=== PATIENT | female | born 1990 | race Hispanic/Latino ===

== ENCOUNTER 2019-04-13 20:57 | Emergency (ER) | payer OTHER ==
[~2019-04-13] VITALS: Ht 152.4 cm; Wt 72.0 kg
[2019-04-13 21:52] LABS: URINE BILIRUBIN - DIPSTICK NEGATIVE (NEGATIVE); URINE BLOOD DIPSTICK NEGATIVE (NEGATIVE); URINE COLOR YELLOW; URINE GLUCOSE - DIPSTICK NEGATIVE (NEGATIVE); URINE KETONE NEGATIVE (NEGATIVE); URINE LEUK ESTERASE NEGATIVE (NEGATIVE); URINE NITRITE - DIPSTICK NEGATIVE (Negative); URINE PH 5.5 (4.5-8.0); URINE PROTEIN - DIPSTICK NEGATIVE (NEG-TRACE); URINE SPECIFIC GRAVITY 1.025; URINE UROBILINOGEN - DIPSTICK 0.2 E.U./dL (0.2)
[2019-04-13 21:57] LABS: BARBITURATES NEGATIVE (NEGATIVE); COCAINE NEGATIVE (NEGATIVE); METHADONE NEGATIVE (NEGATIVE); OXCYCODONE NEGATIVE (NEGATIVE); TETRAHYDROCANNABIONOL NEGATIVE (NEGATIVE); TRICYLIC ANTIDEPRESSANTS NEGATIVE (NEGATIVE)
[2019-04-13 22:06] LABS: HEMATOCRIT 35.8 % (37.0-47.0); HEMOGLOBIN 11.5 g/dl (12.0-16.0); IMMATURE GRANULOCYTES 0.3 % (0.0-5.0); MEAN CELL VOLUME 81.4 fL CALC (80.0-100.0); MEAN CORPUSCULAR HGB 26.1 pG CALC (26.0-32.0); MEAN CORPUSCULAR HGB CONC 32.1 g/L CALC (32.0-36.0); NEUT# 4.12 thou/uL (2.00-7.15); RED BLOOD COUNT 4.4 mill/uL (4.20-5.60); RED CELL DISTRI WIDTH 12.6 % (11.5-15.5)
[2019-04-13 22:24] LABS: ALBUMIN 4.3 g/dL (3.2-5.0); ALKALINE PHOSPHATASE 86 u/l (38-126); ANION GAP 14 (6-22 (CALC)); BILIRUBIN, TOTAL 0.8 mg/dL (0.0-1.4); BUN 13 mg/dL (7-17); BUN/CREATININE RATIO 14 (12-20 (CALC)); CARBON DIOXIDE 26 mmol/l (22-30); CHLORIDE 102 mmol/l (95-108); CREATININE 0.9 mg/dL (0.5-1.0); GFR > 60 ML/MIN (>=60 (CALC)); GFR FOR AFR.AMER. > 60 ML/MIN (>=60 (CALC)); POTASSIUM 3.7 mmol/l (3.5-5.1); SGOT/AST 27 u/l (14-36); SODIUM 139 mmol/l (137-146); TOTAL PROTEIN 7.9 g/dL (6.3-8.2)
[2019-04-13 23:44] VITALS: BP 115/69
== END 2019-04-13 23:44 | disposition home or self-care (01) ==
LOC: ED 20:57
PROVIDERS: Emergency Medicine
DX: R51 Headache (principal); R42 Dizziness and giddiness

== ENCOUNTER 2019-07-02 10:21 | Emergency (ER) | payer OTHER ==
[~2019-07-02] VITALS: Ht 152.4 cm; Wt 90.9 kg
[2019-07-02 11:21] LABS: URINE BILIRUBIN - DIPSTICK NEGATIVE (NEGATIVE); URINE BLOOD DIPSTICK MODERATE (NEGATIVE); URINE COLOR YELLOW; URINE GLUCOSE - DIPSTICK NEGATIVE (NEGATIVE); URINE KETONE NEGATIVE (NEGATIVE); URINE LEUK ESTERASE NEGATIVE (NEGATIVE); URINE NITRITE - DIPSTICK NEGATIVE (Negative); URINE PH 5.5 (4.5-8.0); URINE PROTEIN - DIPSTICK NEGATIVE (NEG-TRACE); URINE UROBILINOGEN - DIPSTICK 0.2 E.U./dL (0.2)
[2019-07-02 11:30] LABS: URINE SQUAMOUS EPITHELIAL CELL FEW EPI/hpf (0-FEW); URINE WBC 0-2 WBC/hpf (0-5)
[2019-07-02 11:35] LABS: HEMATOCRIT 38.6 % (37.0-47.0); HEMOGLOBIN 12.6 g/dl (12.0-16.0); IMMATURE GRANULOCYTES 0.5 % (0.0-5.0); MEAN CELL VOLUME 80.9 fL CALC (80.0-100.0); MEAN CORPUSCULAR HGB 26.4 pG CALC (26.0-32.0); MEAN CORPUSCULAR HGB CONC 32.6 g/L CALC (32.0-36.0); NEUT# 3.14 thou/uL (2.00-7.15); RED BLOOD COUNT 4.77 mill/uL (4.20-5.60); RED CELL DISTRI WIDTH 13.4 % (11.5-15.5)
[2019-07-02 11:55] LABS: ALBUMIN 4.4 g/dL (3.2-5.0); ALKALINE PHOSPHATASE 116 u/l (38-126); ANION GAP 15 (6-22 (CALC)); BILIRUBIN, TOTAL 0.2 mg/dL (0.0-1.4); BUN 11 mg/dL (7-17); BUN/CREATININE RATIO 16 (12-20 (CALC)); CARBON DIOXIDE 21 mmol/l (22-30); CHLORIDE 105 mmol/l (95-108); CREATININE 0.7 mg/dL (0.5-1.0); GFR > 60 ML/MIN (>=60 (CALC)); GFR FOR AFR.AMER. > 60 ML/MIN (>=60 (CALC)); POTASSIUM 4.2 mmol/l (3.5-5.1); SGOT/AST 26 u/l (14-36); SODIUM 136 mmol/l (137-146)
[2019-07-02] MEDS ORDERED: LOTRISONE EX (12:05)
[2019-07-02] MEDS ORDERED: ZOFRAN4 MG/TAB PO (12:05)
[2019-07-02 12:16] VITALS: BP 95/65
[2019-07-02] MEDS ORDERED: BUPROPION HCL300 MG PO (12:18)
[2019-07-02] MEDS ORDERED: SIMVASTATIN20 MG PO (12:18)
== END 2019-07-02 12:28 | disposition home or self-care (01) ==
LOC: ED 10:21
PROVIDERS: Family Medicine
DX: N93.9 Abnormal uterine and vaginal bleeding, unspecified (principal); R21 Rash and other nonspecific skin eruption; R11.0 Nausea

== ENCOUNTER 2019-09-22 | Emergency (ER) | payer OTHER ==
[~2019-09-22] MED LIST: BUPROPION HCL300 MG PO; LOTRISONE EX; SIMVASTATIN20 MG PO; ZOFRAN4 MG/TAB PO
[2019-09-22 15:18] LABS: URINE BILIRUBIN - DIPSTICK NEGATIVE (NEGATIVE); URINE BLOOD DIPSTICK NEGATIVE (NEGATIVE); URINE CLARITY CLEAR; URINE COLOR YELLOW; URINE GLUCOSE - DIPSTICK NEGATIVE (NEGATIVE); URINE KETONE NEGATIVE (NEGATIVE); URINE LEUK ESTERASE NEGATIVE (Negative); URINE NITRITE - DIPSTICK NEGATIVE (Negative); URINE PROTEIN - DIPSTICK TRACE mg/dL (NEG-TRACE); URINE SPECIFIC GRAVITY >=1.030; URINE UROBILINOGEN - DIPSTICK 0.2 E.U./dL (0.2)
== END 2019-09-22 16:50 | disposition home or self-care (01) ==
DX: S40.012A Contusion of left shoulder, initial encounter (principal); S80.11XA Contusion of right lower leg, initial encounter; I10 Essential (primary) hypertension; V48.6XXA Car passenger injured in noncollision transport accident in traffic accident, initial encounter

== ENCOUNTER 2020-07-27 14:17 | Emergency (ER) | payer OTHER ==
[~2020-07-27] VITALS: Ht 152.4 cm; Wt 81.0 kg
[2020-07-27 14:52] LABS: HEMATOCRIT 40.1 % (37.0-47.0); HEMOGLOBIN 12.9 g/dl (12.0-16.0); IMMATURE GRANULOCYTES 0.3 % (0.0-5.0); MEAN CELL VOLUME 80.4 fL CALC (80.0-100.0); MEAN CORPUSCULAR HGB 25.9 pG CALC (26.0-32.0); MEAN CORPUSCULAR HGB CONC 32.2 g/dL CAL (32.0-36.0); NEUT# 4.02 thou/uL (2.00-7.15); RED BLOOD COUNT 4.99 mill/uL (4.20-5.60)
[2020-07-27 15:21] LABS: ALBUMIN 4.7 g/dL (3.2-5.0); ALKALINE PHOSPHATASE 101 u/l (38-126); ANION GAP 16 (6-22 (CALC)); BUN 12 mg/dL (7-17); BUN/CREATININE RATIO 16 (12-20 (CALC)); C-REACTIVE PROTEIN 0.5 mg/dL (0-0.9); CARBON DIOXIDE 25 mmol/l (22-30); CHLORIDE 104 mmol/l (95-108); CREATININE 0.7 mg/dL (0.5-1.0); GFR > 60 ML/MIN (>=60 (CALC)); GFR FOR AFR.AMER. > 60 ML/MIN (>=60 (CALC)); POTASSIUM 3.7 mmol/l (3.5-5.1); SGOT/AST 31 u/l (14-36); SODIUM 141 mmol/l (137-146); TOTAL PROTEIN 8.9 g/dL (6.3-8.2)
[2020-07-27 15:33] LABS: BILIRUBIN, TOTAL 0.5 mg/dL (0.0-1.4)
[2020-07-27 15:54] LABS: URINE BILIRUBIN - DIPSTICK NEGATIVE (NEGATIVE); URINE BLOOD DIPSTICK NEGATIVE (NEGATIVE); URINE COLOR YELLOW; URINE GLUCOSE - DIPSTICK NEGATIVE (NEGATIVE); URINE KETONE NEGATIVE (NEGATIVE); URINE LEUK ESTERASE NEGATIVE (Negative); URINE NITRITE - DIPSTICK NEGATIVE (Negative); URINE PH 8.5 (4.5-8.0); URINE PROTEIN - DIPSTICK NEGATIVE (NEG-TRACE); URINE SPECIFIC GRAVITY 1.015; URINE UROBILINOGEN - DIPSTICK 0.2 E.U./dL (0.2)
[2020-07-27 15:55] LABS: URINE CLARITY HAZY
[2020-07-27 16:50] VITALS: BP 127/81
== END 2020-07-27 17:00 | disposition home or self-care (01) ==
LOC: ED 14:17
DX: B35.3 Tinea pedis (principal); I10 Essential (primary) hypertension

== ENCOUNTER 2020-10-13 15:33 | Emergency (ER) | payer OTHER ==
[~2020-10-13] VITALS: Ht 152.4 cm; Wt 86.4 kg
[2020-10-13] MEDS ORDERED: PREDNISONE50 MG PO (16:44)
[2020-10-13 17:35] VITALS: BP 119/76
== END 2020-10-13 17:35 | disposition home or self-care (01) ==
LOC: ED 15:33
DX: T78.40XA Allergy, unspecified, initial encounter (principal); I10 Essential (primary) hypertension; X58.XXXA Exposure to other specified factors, initial encounter; Z20.822 Contact with and (suspected) exposure to COVID-19

== ENCOUNTER 2022-05-17 02:28 | Emergency (ER) | payer OTHER ==
[~2022-05-17] VITALS: Ht 152.4 cm; Wt 79.5 kg
[~2022-05-17 02:28] MED LIST changes: +PREDNISONE50 MG PO
[2022-05-17 02:40] VITALS: BP 134/88
[2022-05-17 02:45] VITALS: BP 116/92
[2022-05-17] MEDS ORDERED: FAMCICLOVIR500 MG PO (02:52)
[2022-05-17] MEDS ORDERED: ULTRAM50 M1 PO (02:52)
[2022-05-17] MEDS ORDERED: ZOVIRAX52 TOP (02:52)
[2022-05-17 03:02] VITALS: BP 116/92
== END 2022-05-17 03:05 | disposition home or self-care (01) ==
LOC: ED 02:28
DX: B02.9 Zoster without complications (principal); I10 Essential (primary) hypertension

== ENCOUNTER 2022-05-30 17:59 | Emergency (ER) | payer OTHER ==
[~2022-05-30] VITALS: Ht 152.4 cm; Wt 79.0 kg
[2022-05-30] VITALS (8 sets, daily range): BP systolic 91–127; BP diastolic 63–81
[~2022-05-30 17:59] MED LIST changes: +FAMCICLOVIR500 MG PO; +ULTRAM50 M1 PO; +ZOVIRAX52 TOP
[2022-05-30 20:05] LABS: URINE BILIRUBIN - DIPSTICK NEGATIVE (NEGATIVE); URINE BLOOD DIPSTICK MODERATE (NEGATIVE); URINE COLOR YELLOW; URINE GLUCOSE - DIPSTICK NEGATIVE (NEGATIVE); URINE KETONE NEGATIVE (NEGATIVE); URINE PH 7.5 (4.5-8.0); URINE PROTEIN - DIPSTICK NEGATIVE (NEG-TRACE); URINE SPECIFIC GRAVITY 1.015; URINE UROBILINOGEN - DIPSTICK 0.2 E.U./dL (0.2)
[2022-05-30 20:07] LABS: URINE LEUK ESTERASE MODERATE (NEGATIVE); URINE NITRITE - DIPSTICK NEGATIVE (Negative)
[2022-05-30 20:15] LABS: URINE SQUAMOUS EPITHELIAL CELL FEW EPI/hpf (0-FEW); URINE WBC 50-100 WBC/hpf (0-5)
[2022-05-30 20:24] LABS: HEMATOCRIT 34.7 % (37.0-47.0); HEMOGLOBIN 11.6 g/dl (12.0-16.0); IMMATURE GRANULOCYTES 0.2 % (0.0-5.0); MEAN CELL VOLUME 81.5 fL CALC (80.0-100.0); MEAN CORPUSCULAR HGB 27.2 pG CALC (26.0-32.0); MEAN CORPUSCULAR HGB CONC 33.4 g/dL CAL (32.0-36.0); NEUT# 8.83 thou/uL (2.00-7.15); RED BLOOD COUNT 4.26 mill/uL (4.20-5.60); RED CELL DISTRI WIDTH 13.2 % (11.5-15.5)
[2022-05-30 20:36] LABS: ALBUMIN 4.4 g/dL (3.2-5.0); ALKALINE PHOSPHATASE 101 u/l (38-126); ANION GAP 15 (6-22 (CALC)); BILIRUBIN, TOTAL 0.5 mg/dL (0.0-1.4); BUN 6 mg/dL (7-17); BUN/CREATININE RATIO 10 (12-20 (CALC)); CARBON DIOXIDE 21 mmol/l (22-30); CHLORIDE 102 mmol/l (95-108); CREATININE 0.6 mg/dL (0.5-1.0); GFR FOR AFR.AMER. > 60 ML/MIN (>=60 (CALC)); GFR OTHER RACES > 60 ML/MIN (>=60 (CALC)); LIPASE 19 u/l (23-300); POTASSIUM 3.7 mmol/l (3.5-5.1); SGOT/AST 21 u/l (14-36); SODIUM 135 mmol/l (137-146); TOTAL PROTEIN 7.9 g/dL (6.3-8.2)
[2022-05-30] MEDS ORDERED: ULTRAM50 M1 PO (22:46)
[2022-05-30] MEDS ORDERED: KEFLEX500 MG PO (22:46)
== END 2022-05-30 23:20 | disposition home or self-care (01) ==
LOC: ED 17:59
PROVIDERS: Nurse Practitioner
DX: N39.0 Urinary tract infection, site not specified (principal); B96.20 Unspecified Escherichia coli [E. coli] as the cause of diseases classified elsewhere; N83.201 Unspecified ovarian cyst, right side; I10 Essential (primary) hypertension
CPT/HCPCS: Q9967